=== PATIENT | male | born 1970 | race Two or more races ===

== ENCOUNTER 2023-02-09 19:41 | Emergency (ER) | payer BC ==
[~2023-02-09] VITALS: Ht 172.7 cm; Wt 120.2 kg
== END 2023-02-09 21:46 | disposition home or self-care (01) ==
LOC: ER 19:41
DX: S63.632A Sprain of interphalangeal joint of right middle finger, initial encounter (principal); X58.XXXA Exposure to other specified factors, initial encounter; Y93.89 Activity, other specified; Y92.89 Other specified places as the place of occurrence of the external cause; Y99.9 Unspecified external cause status